=== PATIENT | male | born 1940 | race Caucasian/White ===

== ENCOUNTER 2016-11-06 17:27 | Inpatient (IN) | payer MEDICARE, OTHER ==
[~2016-11-06] VITALS: Ht 182.9 cm; Wt 68.3 kg
[~2016-11-06 17:27] MED LIST: CLOP75TA22 PO; PANT40TA5 PO
[2016-11-06] MEDS ORDERED: SODIUM CHLORIDE 0.9% 1,000 ML IV SCH (17:45)
[2016-11-06] MEDS ORDERED: ASPIRIN 325 MG TABLET PO ONE (17:45)
[2016-11-06 17:55] LABS: HEMATOCRIT 42.5 % (39.2-51.8); HEMOGLOBIN 14.2 g/dL (13.7-18.0); WHITE BLOOD COUNT 8.2 x10^3/uL (3.4-10)
[2016-11-06] MEDS ORDERED: OXYC10TA32 PO (17:56)
[2016-11-06] MEDS ORDERED: TRAM50TA2 PO (17:56)
[2016-11-06] MEDS ORDERED: ASPIRIN 81 MG TABLET CHEW PO ONE (18:00)
[2016-11-06 18:07] LABS: ASPARTATE AMINO TRANSFERASE 16 U/L (15-37); BLOOD UREA NITROGEN 30 mg/dL (7-18)
[2016-11-06] MEDS ORDERED: ASPIRIN 81 MG TABLET CHEW ONE (18:08)
[2016-11-06] MEDS ORDERED: LIDOCAINE 2%, 20ML ONE (18:11)
[2016-11-06] MEDS ORDERED: BIVALIRUDIN 250 MG ONE (18:11)
[2016-11-06] MEDS ORDERED: TICAGRELOR 90 MG TABLET ONE (18:11)
[2016-11-06] MEDS ORDERED: FENTANYL PF 100 MCG/2ML ONE (18:11)
[2016-11-06] MEDS ORDERED: VERAPAMIL 2.5 MG/ML, 2ML ONE (18:11)
[2016-11-06] MEDS ORDERED: MIDAZOLAM 1 MG/ML, 5ML ONE (18:11)
[2016-11-06] MEDS ORDERED: HEPARIN 1,000 UNITS/ML, 10ML ONE (18:11)
[2016-11-06 18:16] LABS: IS PT STATUS REG ER OR PRE ER? YES
[2016-11-06] MEDS ORDERED: LABETALOL 5MG/ML, 20ML ONE (18:52)
[2016-11-06] MEDS ORDERED: BIVALIRUDIN 250 MG in DEXTROSE 5% 50 ML IV SCH (19:01)
[2016-11-06] MEDS ORDERED: ZOLPIDEM 5MG TABLET PO PRN (19:30)
[2016-11-06] MEDS ORDERED: ONDANSETRON 2MG/ML, 2ML IVPush PRN (19:30)
[2016-11-06] MEDS ORDERED: ACETAMINOPHEN 325 MG TABLET PO PRN ×2 (19:30)
[2016-11-06] MEDS ORDERED: MORPHINE SULFATE 4 MG/ML, 1ML IVPush PRN (19:30)
[2016-11-06 20:20] VITALS: BP 105/72
[2016-11-06] MEDS ORDERED: SIMVASTATIN 40 MG TABLET PO SCH (21:00)
[2016-11-06] MEDS: TICAGRELOR 90 MG TABLET PO SCH (21:32)
[2016-11-06] MEDS: PANTOPROZOLE 40MG TABLET PO SCH (21:32)
[2016-11-06] MEDS: SODIUM CHLORIDE 0.9% 1,000 ML IV SCH (21:40)
[2016-11-06 22:28] LABS: HEMATOCRIT 40.2 % (39.2-51.8); HEMOGLOBIN 13.4 g/dL (13.7-18.0)
[2016-11-07 01:59] LABS: IS PT STATUS REG ER OR PRE ER? NO
[2016-11-07 04:36] LABS: HEMATOCRIT 37.6 % (39.2-51.8); HEMOGLOBIN 12.6 g/dL (13.7-18.0)
[2016-11-07 04:46] LABS: BLOOD UREA NITROGEN 26 mg/dL (7-18)
[2016-11-07] MEDS: METOPROLOL TARTRATE 25 MG TABLET PO SCH ×2 (06:09→17:01)
[2016-11-07] MEDS: SODIUM CHLORIDE 0.9% 1,000 ML IV SCH ×2 (06:09→20:00)
[2016-11-07] MEDS: PANTOPROZOLE 40MG TABLET PO SCH ×2 (08:48→21:41)
[2016-11-07] MEDS: TICAGRELOR 90 MG TABLET PO SCH ×2 (08:48→21:41)
[2016-11-07] MEDS: ASPIRIN 81 MG TABLET EC PO SCH (08:48)
[2016-11-07 11:16] LABS: IS PT STATUS REG ER OR PRE ER? NO
[2016-11-07 19:25] VITALS: BP 121/77
[2016-11-07] MEDS ORDERED: ATORVASTATIN 40 MG TABLET PO SCH (21:00)
[2016-11-08 01:26] VITALS: BP 118/65
[2016-11-08] MEDS: SODIUM CHLORIDE 0.9% 1,000 ML IV SCH ×2 (03:00→11:00)
[2016-11-08 04:59] LABS: HEMATOCRIT 38.1 % (39.2-51.8); HEMOGLOBIN 12.8 g/dL (13.7-18.0)
[2016-11-08 05:14] LABS: BLOOD UREA NITROGEN 23 mg/dL (7-18)
[2016-11-08 05:17] LABS: ASPARTATE AMINO TRANSFERASE 86 U/L (15-37)
[2016-11-08] MEDS: METOPROLOL TARTRATE 25 MG TABLET PO SCH (06:25)
[2016-11-08] MEDS ORDERED: LISINOPRIL 5 MG TABLET PO SCH (09:00)
[2016-11-08] MEDS: PANTOPROZOLE 40MG TABLET PO SCH (09:59)
[2016-11-08] MEDS: TICAGRELOR 90 MG TABLET PO SCH (09:59)
[2016-11-08] MEDS: ASPIRIN 81 MG TABLET EC PO SCH (09:59)
[2016-11-08 10:00] VITALS: BP 92/60
[2016-11-08 13:22] VITALS: BP 96/62
[2016-11-08] MEDS ORDERED: ATOR40TA78 PO (13:54)
[2016-11-08] MEDS ORDERED: METO25TA35 PO (13:54)
[2016-11-08] MEDS ORDERED: TICA90TA PO (13:54)
[2016-11-08] MEDS ORDERED: ASPI-621 PO (13:54)
[2016-11-08] MEDS ORDERED: LISI5TAB7 PO (13:54)
[2016-11-08] MEDS ORDERED: ONDANSETRON 2MG/ML, 2ML IVPush PRN (15:00)
[2016-11-08] MEDS ORDERED: ZOLPIDEM 5MG TABLET PO PRN (15:00)
[2016-11-08] MEDS ORDERED: SODIUM CHLORIDE 0.9% 1,000 ML IV SCH (15:00)
[2016-11-08] MEDS ORDERED: MORPHINE SULFATE 4 MG/ML, 1ML IVPush PRN (15:00)
[2016-11-08] MEDS ORDERED: ACETAMINOPHEN 325 MG TABLET PO PRN ×2 (15:00)
[2016-11-09] MEDS ORDERED: ASPIRIN 81 MG TABLET EC PO SCH (09:00)
== END 2016-11-08 15:10 | disposition home or self-care (01) | DRG 248 ==
LOC: ED 17:56 → EDIP 19:01 → CCU 19:24 → 5SO 11-07 16:03
PROVIDERS: ADMIT Internal Medicine Cardiovascular Disease; ATTEND Internal Medicine Cardiovascular Disease
PROC: 02703DZ Dilation of Coronary Artery, One Artery with Intraluminal Device, Percutaneous Approach (ICD-10-PCS; principal; 2016-11-06)
PROC: 4A023N7 Measurement of Cardiac Sampling and Pressure, Left Heart, Percutaneous Approach (ICD-10-PCS; 2016-11-06)
PROC: B2111ZZ Fluoroscopy of Multiple Coronary Arteries using Low Osmolar Contrast (ICD-10-PCS; 2016-11-06)
PROC: B2151ZZ Fluoroscopy of Left Heart using Low Osmolar Contrast (ICD-10-PCS; 2016-11-06)
PROC: B2131ZZ Fluoroscopy of Multiple Coronary Artery Bypass Grafts using Low Osmolar Contrast (ICD-10-PCS; 2016-11-06)
PROC: B41F1ZZ Fluoroscopy of Right Lower Extremity Arteries using Low Osmolar Contrast (ICD-10-PCS; 2016-11-06)
DX: I21.19 ST elevation (STEMI) myocardial infarction involving other coronary artery of inferior wall (principal); I50.31 Acute diastolic (congestive) heart failure; N17.0 Acute kidney failure with tubular necrosis; K92.0 Hematemesis; E44.1 Mild protein-calorie malnutrition; I11.0 Hypertensive heart disease with heart failure; E78.5 Hyperlipidemia, unspecified; G89.29 Other chronic pain; I25.5 Ischemic cardiomyopathy; I25.10 Atherosclerotic heart disease of native coronary artery without angina pectoris; J44.9 Chronic obstructive pulmonary disease, unspecified; K30 Functional dyspepsia; Z95.1 Presence of aortocoronary bypass graft; Z90.49 Acquired absence of other specified parts of digestive tract; Z95.5 Presence of coronary angioplasty implant and graft; Z68.20 Body mass index [BMI] 20.0-20.9, adult
CPT/HCPCS: 36415; 71010; 80047; 80048; 80053; 82040; 83690; 84484; 85014; 85018; 85025; 85610; 85730; 86850; 86900; 87081; 93005; 93306; 93458; 99156; 99157; 99285; C1760; C1876; C1894; J0583; J1644; J2250; J3010; J3490; C1725; C1769; C1887; J7030; Q9967

== ENCOUNTER → 2018-04-19 | Outpatient (CLI) | payer MEDICARE, OTHER ==
[~2018-04-19] MED LIST changes: +ASPI81TA45 PO; +ATOR40TA78 PO; -CLOP75TA22 PO; +CLOP75TA52 PO; +LISI5TAB7 PO; +METO25TA35 PO; +OXYC10TA47 PO; +TICA90TA PO; +TRAM50TA2 PO
== END | disposition home or self-care (01) ==
LOC: CVU 13:17
PROVIDERS: ATTEND Internal Medicine Cardiovascular Disease
DX: I73.9 Peripheral vascular disease, unspecified (principal); I25.2 Old myocardial infarction; E78.5 Hyperlipidemia, unspecified
CPT/HCPCS: 0399T; 93306; 93922

== ENCOUNTER 2018-06-07 08:10 | Emergency (ER) | payer MEDICARE, OTHER ==
[~2018-06-07] VITALS: Ht 182.9 cm; Wt 73.0 kg
--- NOTE | 2018-06-07 08:32 | NUR ---
First contact with pt. Pt resting on [place]. [place]. Pt's family at bedside. Pt c/o blood in urine and cough for one week. Pt states it, "is much harder to urinate". [employer] Student at bedside speaking with pt. All safety measures in place. Pt connected to all monitors. Call light within reach.
--- NOTE | 2018-06-07 08:34 | NUR ---
Pt c/o chills, night sweats, difficulty with urination, blood in urine seen two times. Pt denies cp, n/v/d, trauma. CMS intact. NADN.
--- NOTE | 2018-06-07 08:53 | NUR ---
Pt reports a fall at home two days ago getting out of the bath tub. Pt reports he felt dizzy when getting ut and fell. ED MD aware.
--- NOTE | 2018-06-07 08:54 | NUR ---
Provided pt with urinal for UA. Pt aware of need for urine sample.
[2018-06-07 09:28] LABS: BASOPHILS # (AUTO) 0.02 x10^3/uL (0-0.1); BASOPHILS % (AUTO) 0 % (0-1); EOSINOPHILS # (AUTO) 0.06 x10^3/uL (0-0.4); EOSINOPHILS % (AUTO) 1 % (1-7); LYMPHOCYTES # (AUTO) 0.95 x10^3/uL (1-3.4); LYMPHOCYTES % (AUTO) 12 % (22-44); MD NO; MEAN CORPUSCULAR HEMOGLOBIN 31.2 pg (27.5-34.5); MEAN CORPUSCULAR HGB CONC 33.6 g/dL (33.2-36.2); MEAN PLATELET VOLUME 7.1 fL (7.4-10.4); MONOCYTES # (AUTO) 0.63 x10^3/uL (0.2-0.8); MONOCYTES % (AUTO) 8 % (2-9); NEUTROPHILS # (AUTO) 6.45 x10^3/uL (1.8-6.8); NEUTROPHILS % (AUTO) 79 % (42-75); PLATELET COUNT 237 x10^3/uL (130-400); RED BLOOD COUNT 4.32 x10^6/uL (4.38-5.82); RED CELL DISTRIBUTION WIDTH 13.3 % (9.4-14.8)
[2018-06-07 09:41] LABS: ANION GAP 5 mmol/L (5-15); CALCIUM 8.7 mg/dL (8.5-10.1); CHLORIDE 104 mmol/L (98-107); CREATININE 1.41 mg/dL (0.7-1.3)
--- NOTE | 2018-06-07 10:23 | NUR ---
Pt passed PO challenge with no complications of 30 mL of water. No coughing or difficulty swallowing observed. Pt one contact stand by assistance up to stand to urinate. Urine sample collected and sent to lab.
[2018-06-07 10:44] LABS: CULTURE INDICATED? YES; MICROSCOPIC INDICATED
[2018-06-07 11:42] VITALS: BP 124/79
== END 2018-06-07 11:42 | disposition home or self-care (01) ==
LOC: ED 09:02
DX: R31.29 Other microscopic hematuria (principal); J10.1 Influenza due to other identified influenza virus with other respiratory manifestations; I10 Essential (primary) hypertension; I25.2 Old myocardial infarction; J44.9 Chronic obstructive pulmonary disease, unspecified
CPT/HCPCS: 36415; 71045; 80048; 81001; 85025; 87086; 93005; 99284

== ENCOUNTER 2018-06-12 07:14 | Emergency (ER) | payer MEDICARE, OTHER ==
[~2018-06-12] VITALS: Ht 182.9 cm; Wt 72.3 kg
--- NOTE | 2018-06-12 07:55 | NUR ---
pt presented to ed with cough and congestion x 1 week. pt was diagnosed with the flu. pt had a fall on wednesday with left rib pain. pt with small bruise on left side of chest. pt a&ox4. at bedside. pt taken to radiology
[2018-06-12 09:38] VITALS: BP 123/73
== END 2018-06-12 09:40 | disposition home or self-care (01) ==
LOC: ED 09:15
DX: S20.212A Contusion of left front wall of thorax, initial encounter (principal); I25.2 Old myocardial infarction; I11.9 Hypertensive heart disease without heart failure; J44.9 Chronic obstructive pulmonary disease, unspecified; Z87.09 Personal history of other diseases of the respiratory system; W18.39XA Other fall on same level, initial encounter; Y93.89 Activity, other specified; Y92.89 Other specified places as the place of occurrence of the external cause; Y99.8 Other external cause status
CPT/HCPCS: 93005; 99283

== ENCOUNTER 2019-11-03 12:44 | Outpatient (CLI) | payer MEDICARE, OTHER ==
[2019-11-03] MEDS ORDERED: OMNIPAQUE 350 MG/ML, 100ML BOTTLE ONE (13:00)
== END 2019-11-03 23:59 | disposition home or self-care (01) ==
LOC: CFH 12:44
PROVIDERS: ATTEND Internal Medicine Cardiovascular Disease
DX: I77.810 Thoracic aortic ectasia (principal); R91.1 Solitary pulmonary nodule
CPT/HCPCS: 71275; Q9967

== ENCOUNTER 2020-02-02 11:45 | Inpatient (IN) | payer MEDICARE, OTHER ==
[~2020-02-02] VITALS: Ht 182.9 cm; Wt 70.1 kg
[~2020-02-02 11:45] MED LIST changes: -PANT40TA5 PO; +PANT40TA6 PO
--- NOTE | 2020-02-02 12:03 | NUR ---
EKG IN TRAIGE. DENIES BLOOD IN STOOL OR VOMIT
[2020-02-02 12:45] LABS: BASOPHILS % (AUTO) 0 % (0-1); EOSINOPHILS % (AUTO) 0 % (1-7); LYMPHOCYTES % (AUTO) 13 % (22-44); MEAN CORPUSCULAR HEMOGLOBIN 31.9 pg (27.5-34.5); MEAN PLATELET VOLUME 7.3 fL (7.4-10.4); MONOCYTES % (AUTO) 12 % (2-9); NEUTROPHILS % (AUTO) 74 % (42-75); PLATELET COUNT 170 x10^3/uL (130-400); RED BLOOD COUNT 4.37 x10^6/uL (4.38-5.82); RED CELL DISTRIBUTION WIDTH 13.2 % (9.4-14.8)
[2020-02-02 12:46] LABS: ALANINE AMINOTRANSFERASE 22 U/L (12-78); ALBUMIN 3.4 g/dL (3.4-5.0); ANION GAP 7 mmol/L (5-15); CALCIUM 8.8 mg/dL (8.5-10.1); CHLORIDE 105 mmol/L (98-107); CREATININE 1.27 mg/dL (0.7-1.3)
[2020-02-02 12:48] LABS: ALKALINE PHOSPHATASE 69 U/L (45-117); BILIRUBIN,TOTAL 1.6 mg/dL (0.2-1.0); TOTAL PROTEIN 6.9 g/dL (6.4-8.2)
--- NOTE | 2020-02-02 13:05 | NUR ---
MAIL ROOM: PT TO ROOM FROM [facility]
[2020-02-02 13:14] LABS: MD SCAN
--- NOTE | 2020-02-02 13:27 | NUR ---
THIS IS A 80 YO M W/ C/O EPIGASTRIC PAIN, N/V X3 DAYS. PT DENIES BLOOD IN STOOL. PT REPORTS EMESIS DARK BROWN IN COLOR, VOMITING ONCE A DAY. PT HAS HX OF GI BLEED. PT AMBULATED TO THE W/ A STEADY GAIT. URINE COLLECTED AND SENT TO LAB. PT RETURNED TO ROOM W/O INCIDENT. RESTING ON GURNEY W/ CALL LIGHT IN REACH, FAMILY AT BEDSIDE AND SIDE RAILS UPX2. LINDA URIOSTEGUI.
[2020-02-02 13:40] LABS: MICROSCOPIC INDICATED
--- NOTE | 2020-02-02 13:53 | NUR ---
PT TO CT.
[2020-02-02 13:59] LABS: TROPONIN I 0.049 ng/mL (0.000-0.045)
[2020-02-02] MEDS ORDERED: SODIUM CHLORIDE 0.9% 1,000ML IVBOLUS ONE (14:00)
[2020-02-02] MEDS ORDERED: SODIUM CHLORIDE FLUSH 10ML SYR IVF ONE (14:00)
[2020-02-02] MEDS ORDERED: ASPIRIN 81 MG TABLET CHEW PO ONE (14:30)
[2020-02-02] MEDS ORDERED: ASPIRIN 81 MG TABLET CHEW ONE (14:30)
--- NOTE | 2020-02-02 14:37 | NUR ---
SPOUSE REMOVED PTS HEARING AIDS PER PT REQUEST. STATES SHE WILL TAKE THEM HOME.
--- NOTE | 2020-02-02 14:49 | NUR ---
PT PROVIDED W/ WATER, OK PER .
--- NOTE | 2020-02-02 14:50 | NUR ---
REPORT GIVEN TO MALICK CLARKE. PT RESTING ON GURNEY W/ CALL LIGHT IN REACH AND FAMILY AT BEDSIDE. LINDA URIOSTEGUI. AWAITING ADMIT.
--- NOTE | 2020-02-02 14:55 | NUR ---
REPORT RECEIVED FROM VINCE SOUZA. PLAN OF CARE DISCUSSED
--- NOTE | 2020-02-02 15:34 | NUR ---
REPORT GIVEN TO VINCE WADDELL. PLAN OF CARE DISCUSSED. IVF INFUSING AT TIME OF TRANSFER
[2020-02-02 16:32] VITALS: BP 143/74
[2020-02-02] MEDS ORDERED: METO25TA4 PO (17:58)
[2020-02-02] MEDS ORDERED: DICL50TA4 PO (17:58)
[2020-02-02] MEDS ORDERED: OMEP20TA62 PO (17:58)
[2020-02-02] MEDS ORDERED: ATOR40TA78 PO (17:58)
[2020-02-02] MEDS ORDERED: LISI5TAB7 PO (17:58)
[2020-02-02] MEDS ORDERED: MELATONIN 5 MG TABLET PO PRN (18:00)
[2020-02-02] MEDS ORDERED: morphine SULFATE 10 MG/ML, 1ML IVPush PRN (18:00)
[2020-02-02] MEDS ORDERED: DOCUSATE 100 MG CAPSULE PO PRN (18:00)
[2020-02-02] MEDS ORDERED: BISACODYL 10 MG SUPP PR PRN (18:00)
[2020-02-02] MEDS ORDERED: NITROGLYCERIN 0.4 MG BOTTLE (25 TABS) SL PRN (18:00)
[2020-02-02] MEDS ORDERED: POLYETHYLENE GLYCOL 17 GM PACKET PO PRN (18:00)
[2020-02-02] MEDS ORDERED: ONDANSETRON 2MG/ML, 2ML IVPush PRN (18:00)
[2020-02-02] MEDS ORDERED: ACETAMINOPHEN 325 MG TABLET PO PRN (18:00)
[2020-02-02] MEDS ORDERED: ONDANSETRON ODT 4 MG PO PRN (18:00)
[2020-02-02 19:07] VITALS: BP 137/81
[2020-02-02] MEDS: METOPROLOL TARTRATE 25 MG TAB PO SCH (20:59)
[2020-02-02] MEDS: ATORVASTATIN 40 MG TABLET PO SCH (20:59)
[2020-02-02] MEDS: PANTOPRAZOLE 40 MG IV IVPush SCH (20:59)
[2020-02-03 01:03] VITALS: BP 149/82
[2020-02-03 05:05] LABS: BASOPHILS % (AUTO) 0 % (0-1); EOSINOPHILS % (AUTO) 1 % (1-7); LYMPHOCYTES % (AUTO) 17 % (22-44); MEAN CORPUSCULAR HEMOGLOBIN 32.8 pg (27.5-34.5); MEAN CORPUSCULAR HGB CONC 34.2 g/dL (33.2-36.2); MEAN PLATELET VOLUME 7.4 fL (7.4-10.4); MONOCYTES % (AUTO) 12 % (2-9); NEUTROPHILS % (AUTO) 70 % (42-75); PLATELET COUNT 140 x10^3/uL (130-400); RED BLOOD COUNT 4.03 x10^6/uL (4.38-5.82); RED CELL DISTRIBUTION WIDTH 13.6 % (9.4-14.8)
[2020-02-03 05:06] LABS: MD NO
[2020-02-03 05:17] LABS: ANION GAP 3 mmol/L (5-15); CHLORIDE 110 mmol/L (98-107)
[2020-02-03 05:20] LABS: ALANINE AMINOTRANSFERASE 22 U/L (12-78); BILIRUBIN,TOTAL 1.6 mg/dL (0.2-1.0); CHOLESTEROL, TOTAL 99 mg/dL (140-239); CREATININE 1.09 mg/dL (0.7-1.3); TOTAL PROTEIN 6.1 g/dL (6.4-8.2); TRIGLYCERIDES 65 mg/dL (50-200); TROPONIN I 0.029 ng/mL (0.000-0.045); VLDL CHOLESTEROL 13 mg/dL (0-25)
[2020-02-03 05:26] LABS: ALKALINE PHOSPHATASE 53 U/L (45-117); CHOL/HDL RATIO 1.7; HDL CHOL % 58 % (26-37); HDL CHOLESTEROL (DIRECT) 57 mg/dL (40-60); LDL CHOLESTEROL,CALCULATED 29 mg/dL (54-169); LDL/HDL RATIO 0.5 (0.5-3.0)
[2020-02-03 07:41] VITALS: BP 146/75
[2020-02-03] MEDS: PANTOPRAZOLE 40 MG IV IVPush SCH ×2 (09:23→21:07)
[2020-02-03] MEDS: LISINOPRIL 5 MG TABLET PO SCH (09:23)
[2020-02-03] MEDS: METOPROLOL TARTRATE 25 MG TAB PO SCH ×2 (09:23→21:08)
[2020-02-03] MEDS: SUCRALFATE 1 GM/10 ML UDC PO SCH ×3 (11:37→21:07)
[2020-02-03] MEDS: ONDANSETRON 2MG/ML, 2ML IVPush SCH ×2 (12:00→16:33)
[2020-02-03 12:18] VITALS: BP 152/82
[2020-02-03] MEDS: ATORVASTATIN 40 MG TABLET PO SCH (21:07)
[2020-02-03 21:09] VITALS: BP 134/81
[2020-02-04 01:22] VITALS: BP 137/80
[2020-02-04] MEDS: ONDANSETRON 2MG/ML, 2ML IVPush SCH ×3 (06:00→12:00)
[2020-02-04 06:31] LABS: CHLORIDE 108 mmol/L (98-107)
[2020-02-04 06:37] LABS: ANION GAP 8 mmol/L (5-15); CREATININE 1.34 mg/dL (0.7-1.3)
[2020-02-04 07:18] VITALS: BP 150/80
[2020-02-04] MEDS: SUCRALFATE 1 GM/10 ML UDC PO SCH ×2 (07:27→12:58)
[2020-02-04] MEDS: LISINOPRIL 5 MG TABLET PO SCH (07:28)
[2020-02-04] MEDS: METOPROLOL TARTRATE 25 MG TAB PO SCH (07:29)
[2020-02-04] MEDS ORDERED: ASPIRIN 81 MG TABLET EC PO SCH (07:30)
[2020-02-04] MEDS: PANTOPRAZOLE 40 MG IV IVPush SCH (07:30)
[2020-02-04] MEDS ORDERED: PANT40TA6 PO (12:03)
[2020-02-04] MEDS ORDERED: SUCR1ORA5 PO (12:03)
[2020-02-04 12:48] VITALS: BP 104/66
[2020-02-05] MEDS ORDERED: PANTOPRAZOLE 40MG TABLET PO SCH (06:00)
== END 2020-02-04 15:35 | disposition home or self-care (01) | DRG 384 ==
LOC: ED 14:05 → EDIP 14:12 → ED 14:21 → 4WST 16:05
PROVIDERS: ADMIT Internal Medicine Gastroenterology; ATTEND Internal Medicine
DX: K27.9 Peptic ulcer, site unspecified, unspecified as acute or chronic, without hemorrhage or perforation (principal); D62 Acute posthemorrhagic anemia; I50.32 Chronic diastolic (congestive) heart failure; I24.8 Other forms of acute ischemic heart disease; K29.60 Other gastritis without bleeding; E78.5 Hyperlipidemia, unspecified; E86.0 Dehydration; I11.0 Hypertensive heart disease with heart failure; I25.10 Atherosclerotic heart disease of native coronary artery without angina pectoris; I25.5 Ischemic cardiomyopathy; F10.21 Alcohol dependence, in remission; J44.9 Chronic obstructive pulmonary disease, unspecified; G89.29 Other chronic pain; M54.9 Dorsalgia, unspecified; K21.9 Gastro-esophageal reflux disease without esophagitis; N20.0 Calculus of kidney; R13.10 Dysphagia, unspecified; I25.2 Old myocardial infarction; Z79.82 Long term (current) use of aspirin; Z79.899 Other long term (current) drug therapy; Z80.1 Family history of malignant neoplasm of trachea, bronchus and lung; Z90.49 Acquired absence of other specified parts of digestive tract; Z95.5 Presence of coronary angioplasty implant and graft; Z95.1 Presence of aortocoronary bypass graft
CPT/HCPCS: 36415; 71045; 74021; 80048; 80053; 80061; 81001; 83690; 83735; 84100; 84443; 84484; 85025; 93005; 93306; 96360; 99285; G0378; C9113; J7030

== ENCOUNTER → 2020-05-08 | Outpatient (CLI) | payer MEDICARE, OTHER ==
[~2020-05-08] MED LIST changes: +DICL50TA4 PO; +METO25TA4 PO; +OMEP20TA62 PO; +SUCR1ORA5 PO
== END | disposition home or self-care (01) ==
LOC: CFH 08:31
PROVIDERS: ATTEND Psychiatry & Neurology Neurology
DX: G31.9 Degenerative disease of nervous system, unspecified (principal); F03.90 Unspecified dementia, unspecified severity, without behavioral disturbance, psychotic disturbance, mood disturbance, and anxiety; R41.3 Other amnesia
CPT/HCPCS: 70551

== ENCOUNTER 2020-09-02 11:06 | Emergency (ER) | payer MEDICARE, OTHER ==
[~2020-09-02] VITALS: Ht 182.9 cm; Wt 61.3 kg
--- NOTE | 2020-09-02 11:55 | NUR ---
PT STATES WENT TO [facility] ON WEDNESDAY HAD INJECTION FOR PAIN. GAVE PRESCRIPTION FOR PAIN, PT STATES THAT WHEN PT TOOK MEDICATION IT DIDN'T TAKE AWAY PAIN BUT MADE PT VERY DISORIENTED, SO PT STOPPED TAKING MEDICATION. STATES "CALLED [facility] THIS AM AND THEY RECOMENDED EFRAÍN TO ER TO TO HAVE MRI"
--- NOTE | 2020-09-02 12:18 | NUR ---
PROVIDER AT BEDSIDE TO DO EVALUATION.
--- NOTE | 2020-09-02 12:55 | NUR ---
PT SENT TO MRI FOR EXAM.
[2020-09-02 12:58] LABS: BASOPHILS % (AUTO) 1 % (0-1); EOSINOPHILS % (AUTO) 2 % (1-7); LYMPHOCYTES % (AUTO) 16 % (22-44); MEAN CORPUSCULAR HEMOGLOBIN 33.2 pg (27.5-34.5); MEAN CORPUSCULAR HGB CONC 34.9 g/dL (33.2-36.2); MONOCYTES % (AUTO) 11 % (2-9); NEUTROPHILS % (AUTO) 71 % (42-75); PLATELET COUNT 164 x10^3/uL (130-400); RED BLOOD COUNT 4.01 x10^6/uL (4.38-5.82)
[2020-09-02] MEDS ORDERED: SODIUM CHLORIDE FLUSH 10ML SYR IVF ONE (13:00)
[2020-09-02 13:10] LABS: ALBUMIN 2.9 g/dL (3.4-5.0); ANION GAP 3 mmol/L (5-15); CALCIUM 8.9 mg/dL (8.5-10.1); CHLORIDE 105 mmol/L (98-107); CREATININE 1.18 mg/dL (0.7-1.3)
[2020-09-02] MEDS ORDERED: GADOTERATE 7.5 MMOL/15ML SYR ONE (13:43)
--- NOTE | 2020-09-02 14:13 | NUR ---
PT BACK FROM MRI, HOOKED UP TO VITAL MONITORS PULSE OXIMETERM HR, AND BP. PT BOOSTED UP IN BED, RAILS UP X2. CALL REMOTE WITHIN REACH VSS.
--- NOTE | 2020-09-02 15:09 | NUR ---
PROVIDER AT BEDSIDE TO DISCUSS DISCHARGE AND PLAN OF CARE.
--- NOTE | 2020-09-02 16:00 | NUR ---
Patient given discharge instructions and they have confirmed that they understand the instructions. Patient ambulatory with steady gait. No quesitons at time of discharge.
[2020-09-02 16:18] VITALS: BP 121/74
== END 2020-09-02 16:22 | disposition home or self-care (01) ==
LOC: ED 16:02
DX: S22.080A Wedge compression fracture of T11-T12 vertebra, initial encounter for closed fracture (principal); M51.36 Other intervertebral disc degeneration, lumbar region; I10 Essential (primary) hypertension; J44.9 Chronic obstructive pulmonary disease, unspecified; I25.2 Old myocardial infarction; Z90.49 Acquired absence of other specified parts of digestive tract; X58.XXXA Exposure to other specified factors, initial encounter; Y93.89 Activity, other specified; Y92.89 Other specified places as the place of occurrence of the external cause; Y99.8 Other external cause status
CPT/HCPCS: 36415; 72158; 80048; 82040; 85025; 99284; A9575

== ENCOUNTER 2020-11-26 09:40 | Outpatient (CLI) | payer MEDICARE, OTHER ==
[2020-11-26] MEDS ORDERED: OMNIPAQUE 350 MG/ML, 100ML BOTTLE ONE (11:05)
== END 2020-11-26 23:59 | disposition home or self-care (01) ==
LOC: CFH 09:40
PROVIDERS: ATTEND Internal Medicine Cardiovascular Disease
DX: J84.9 Interstitial pulmonary disease, unspecified (principal); I77.810 Thoracic aortic ectasia; I25.10 Atherosclerotic heart disease of native coronary artery without angina pectoris; M48.54XA Collapsed vertebra, not elsewhere classified, thoracic region, initial encounter for fracture; R91.1 Solitary pulmonary nodule
CPT/HCPCS: 71275; 82565; Q9967